=== PATIENT | male | born 1940 | race Caucasian/White ===

== ENCOUNTER 2020-03-30 08:53 | Observation (INO) | payer OTHER ==
[2020-03-30] VITALS (15 sets, daily range): BP systolic 113–153; BP diastolic 54–82
[~2020-03-30] VITALS: Ht 152.4 cm; Wt 87.1 kg
--- NOTE | ~2020-03-30 | SHORT ---
[address] [address] SHORT STAY SUMMARY Name: HALEY PHILLIPS Room: [address] Kasey Nicolas#: [id number] Admission: 03/30/20 Attend Phys: Odin Roldan MD, F Discharge: 03/31/20 Date of : 44 Report #: [id number] THIS REPORT FOR: //name// CC: Odin Kearns MD DATE OF SERVICE: 03/31/2020 PRIMARY CARE PHYSICIAN: Edward Kearns MD DISCHARGE DIAGNOSES: 1. Coronary artery disease. 2. Aortic stenosis. 3. Hypertension. 4. Hyperlipidemia. CONSULTANTS: None. PROCEDURES: Right and left heart catheterization with placement of 2 drug-eluting stents in the right coronary artery via the femoral approach. HISTORY OF PRESENT ILLNESS: The patient is a 79-year-old white male who was brought to the outpatient department to undergo repeat cardiac catheterization. The patient previously was followed by Dr. Otero. He had an abnormal stress test and had 3 coronary artery stents placed at [facility] in 2004. Recently, he was followed by my partner, Dr. Bryant. He has a known history of mild aortic stenosis. He is not very active because of chronic back pain and primarily using a wheelchair. He is scheduled to undergo an EGD for dyspepsia. Nuclear stress test 2017 showed no ischemia with an ejection fraction lower limits of normal. The patient was referred to my office on 03/23 for preoperative evaluation prior to undergoing an EGD. Echocardiogram in my office showed an ejection fraction of 50% with evidence of significant aortic stenosis. Previous carotid Doppler study showed no significant stenosis. Because of his need for procedure and evidence of significant aortic stenosis and coronary artery disease, recommended he undergo preop cardiac catheterization. However, he denies recent chest pain, shortness of breath, palpitation, syncope, or peripheral edema. PAST MEDICAL HISTORY: Significant for appendectomy. He has a history of hypertension and hyperlipidemia. MEDICATIONS ON ADMISSION: Included amlodipine, aspirin, Lipitor, and losartan. ALLERGIES: He had [place] [address] SHORT STAY SUMMARY Name: HALEY PHILLIPS Room: [address] Sergei.#: [id number] Admission: 03/30/20 Attend Phys: Odin Roldan MD, F Discharge: 03/31/20 Date of : 44 Report #: [id number] PHYSICAL EXAMINATION: GENERAL: Revealed an elderly male. VITAL SIGNS: Blood pressure 110/60, pulse is 60. NECK: Veins do not appear distended. CHEST: Clear to auscultation. CARDIOVASCULAR: Regular rate and rhythm, grade 3 systolic ejection murmur at left sternal border. ABDOMEN: Soft. EXTREMITIES: Had no edema. SKIN: Warm and dry. LABORATORY DATA: ECG showed sinus rhythm, nonspecific T-wave changes. His lab work on arrival, sodium was 127, potassium 5.3, BUN 11, creatinine 1.2. His cholesterol 176, triglycerides 75, HDL 123, LDL only 38. White blood cell count was 5.0, hemoglobin 12.1. His COVID stat test was not detected. HOSPITAL COURSE: The patient was brought to the outpatient department. I performed right and left heart catheterization via the right femoral artery and vein. He tolerated the procedure well. Coronary arteriograms: There was a 60% narrowing of the distal LAD. The circumflex had a large second marginal branch that had a stent with a 60% restenosis. The right coronary was a dominant vessel. There was a long stent that started proximally and ended in the mid right coronary artery. There was a 60% narrowing of the proximal portion of stent. There was an 80% stenosis at the distal edge of the stent. The distal right coronary artery prior to bifurcating had a 99% subtotal stenosis. Ejection fraction was 45-50%. I performed a right heart catheterization. Pulmonary artery pressure was 30/12 with a wedge pressure 14. Cardiac output was 5.43 liters per minute. The peak gradient across the aortic valve was only 30 mmHg consistent with moderate aortic stenosis and the valve area was 1.0 cm2. The results were discussed with the patient. He is felt to have only moderate aortic stenosis. I would not recommend TAVR at this time. However, he had a significant stenosis at distal right coronary artery. Despite the fact he was asymptomatic, I recommended stenting. He was then given heparin and Aggrastat. Because of tortuosity and calcification, the procedure required a mar wire for support. I was asked to place 2 drug-eluting stents in the mid and distal right coronary artery. Residual stenosis was 0%. He tolerated the procedure well. The sheath removed and the following day, had no significant hematoma. He had no further chest pain, shortness of breath, arrhythmias. At the time of discharge, the patient had no complaints. He had a blood pressure 130/60, pulse was 70. Lab work the following day included a potassium 4.5, sodium 133, creatinine 1.1. His troponin was 0.13. His hematocrit was 28.9. He was discharged to continue his home medications including amlodipine 10 mg a day for hypertension, aspirin 81 mg a day, Lipitor 10 mg a day, losartan 100 mg a day. In addition, he was started on Plavix 75 mg a day, which I would take for 1 year following placement of drug-eluting stent. He was also given nitroglycerin to take as needed for chest pain. He was [place] [address] SHORT STAY SUMMARY Name: HALEY PHILLIPS Room: [address] Kasey Nicolas#: [id number] Admission: 03/30/20 Attend Phys: Odin Roldan MD, F Discharge: 03/31/20 Date of : 44 Report #: [id number] Edward Kearns for routine medical care. I plan on seeing him back in Cardiology Clinic in 6 weeks for followup. He was to contact my office if he had recurrent shortness of breath, chest pain, or bleeding. The patient was to be followed for worsening of his aortic stenosis. Since I placed a drug-eluting stent, I would not recommend elective procedure for at least 3 months, which would be approximately 07/02/2020, when that will be safe to discontinue the Plavix for 5 days and proceed with EGD. By: 1653 [id number] Roldan MD, FACC /nt
[~2020-03-30 08:53] MED LIST: ALLEGRA ALLERG180 MG PO; ANTIVERT25 MG PO; ASPIR 8181 MG PO; COZAAR 25 MG TA25 M1 PO; FOLIC ACID1 MG PO; LIPITOR 10 MG10 M1 PO; NORVASC10 MG PO; SUPER THERAVIT1 EACH PO; VITAMIN D31250 MC1 PO; VITAMIN E1000 UNIT PO
[2020-03-30 09:38] LABS: HEMATOCRIT 35.3 % (42.0-52.0); HEMOGLOBIN 12.1 gm/dL (14.0-18.0); MCH 29.2 pg (26.0-34.0); MCHC 34.4 g/dL (28.0-37.0); MCV 84.9 fL (80.0-100.0); MPV 8.2 fl. (7.2-11.1); RBC 4.16 mil/uL (4.50-6.00); RDW-CV 13.6 % (10.5-14.5)
[2020-03-30 09:43] LABS: ANION GAP 9 mmol/L (7-16); BUN 11 mg/dL (7-18); CALCIUM 9.2 mg/dL (8.5-10.1); CHLORIDE 94 mmol/L (98-107); CO2 24 mmol/L (21-32); CREATININE 1.2 mg/dL (0.6-1.3); GLUCOSE 131 mg/dL (70-99); POTASSIUM 5.3 mmol/L (3.5-5.1); SODIUM 127 mmol/L (136-145)
[2020-03-30 09:44] LABS: APTT 28.7 Seconds (25.0-31.3); INR 1.2; PROTIME 11.9 Seconds (9.20-11.50)
[2020-03-30 09:54] LABS: ALBUMIN 3.3 g/dL (3.4-5.0); ALKALINE PHOSPHATASE 123 U/L (46-116); CHOLESTEROL 176 mg/dL (<200); HDL CHOLESTEROL 123 mg/dL (>40); LDL CHOLESTEROL 38 mg/dL (<100); SGOT 56 U/L (15-37); SGPT 36 U/L (30-65); TC:HDL 1.4 Ratio (Not establshd); TOTAL BILIRUBIN 0.5 mg/dL (<0.1-1.0); TOTAL PROTEIN 7.1 g/dL (6.4-8.2); TRIGLYCERIDE 75 mg/dL (<150); VLDL 15 mg/dL (<40)
[2020-03-30 09:56] LABS: SERUM ASSESSMENT Clear
[2020-03-30] MEDS ORDERED: ACIDOPHILUS PR1 EACH PO (10:16)
[2020-03-30 11:30] LABS: BE -4.1 mmol/L (-2 to +3); PCO2 34.2 mmHg (35.0-45.0); PO2 73.2 mmHg (75.0-100.0); pH 7.389 (7.340-7.450)
[2020-03-30 11:33] LABS: BE -2.3 mmol/L (-2 to +3); PCO2 VENOUS 39.9 mmHg (41.0-51.0)
--- NOTE | 2020-03-30 16:48 | EKG ---
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1940 Requested By: Odin Roldan Order Number: [id number] Valdez MD: Odin Roldan Measurements Intervals [place] Rate: 75 P: 59 [place]: 178 QRS: 4 QRSD: 118 T: 107 QT: 379 QTc: 424 Interpretive Statements Sinus rhythm Borderline low voltage, extremity leads No previous ECG available for comparison Electronically Signed On 03-30-2020 16:48:02 CDT by Odin Roldan [email or web address] <ELECTRONICALLY SIGNED> By: Odin Roldan MD, [facility] 03/30/20 1648 1353 1353 Odin Roldan MD, [facility] /EPI
--- NOTE | 2020-03-30 18:05 | CARD ---
[address] [address] CARDIAC CATH REPORT Name: HALEY PHILLIPS Room: [address] Kasey Nicolas#: [id number] Admission: 03/30/20 Attend Phys: Odin Roldan MD, F Discharge: Date of : 44 Report #: [id number] THIS REPORT FOR: //name// cc: Edward Kearns MD, [place] S. MD ~ APPROVED REPORT Study performed: 03/30/2020 09:57:21 Patient Details Patient Status: Out-Patient Room #: The patient is a 79 year-old male Event Personnel Odin Roldan Blow Molding Machine Tender, Chao Tapia RN RN, Tressa Vega RTR Scrub, Chrissy Cruz RTR Monitor, Minesh Constantino SYSTEMS DEVELOPMENT CONSULTANT Monitor Procedures Performed Art Access - R femoral artery Reji Access - R femoral vein Right and Left Heart Cath w/or w/o Coronarie Supravalvular Aortography Injection JOELLEN Place w/wo Plasty Single RCA Hemostasis with Manual pressure Indication Valvular heart disease Risk Factors Arterial Hypertension, Hypercholesterolemia, Coronary Artery Disease Previous Procedures/Diagnoses Previous PCI Admission/Lab Medications/Medications given during procedure Glycoprotein IllbIlla Inhibitors, Heparin Unfract., 0.9% Sodium Chloride IV 75 ml per hr, Midazolam (Versed) IV 3 mg, Oxygen Nasal cannula 2 l per min, Heparin IV 6000 units, Heparin IV 1000 units, Fentanyl IV 25 mcg, Aggrastat IV 8.7 ml, Plavix PO 600 mg Procedure Narrative The patient was brought electively to the Cardiac Catheterization Laboratory and was prepped and draped in a sterile manner. The right femoral was infiltrated with 2% [place] [address] CARDIAC CATH REPORT Name: HALEY PHILLIPS Room: [address]#: [id number] Admission: 03/30/20 Attend Phys: Odin Roldan MD, F Discharge: Date of : 44 Report #: [id number] Right Heart Catheterization was performed with a 7 Fr. Edmond-Clint catheter and pressure were recorded. Cardiac outputs were obtained by the [place] and Thermal Dilution method. A 7Fr x 11cm Lynette sheath was inserted into the right femoral artery. Coronary angiography was performed using coronary diagnostic catheters. The right coronary system was accessed and visualized with a Diagnostic 6 Fr JR 4 catheter. The left coronary system was accessed and visualized with a Diagnostic 6 Fr JL 4 catheter. The left ventricle was accessed and visualized with a Diagnostic 6 Fr Pigtail catheter. Left ventricular/Aortic Valve gradient assessed via simultaneous left ventricle and right femoral artery pressure. Left ventriculogram was performed in RICHARDS projection. An aortogram of the aortic root was performed. Hemostasis was obtained with manual pressure following sheath removal without any complications. The patient tolerated the procedure well and there were no complications associated with the procedure. There was no hematoma. 7 nauruan sheath was placed in the right femoral vein, and removed at the end of the procedure with hemostasis achieved by manual compression. Aortic root injection was performed with the pigtail catheter. The aortic valve was crossed with a straight tip glide wire advanced through the 6 nauruan JL4 catheter, and exchanged over an exchange wire for a dual lumen pigtail catheter. Intraoperative Conscious Sedation Sedation start time: 10:57 Case end Time: 12:58 Fentanyl 25 mcg Versed 3 mg Fluoro Time: 17.7 minutes Dose: DAP 038188 cGycm2 2371 mGy Contrast Type and Amount: Visipaque 245 ml Coronary Angiography The patient's coronary anatomy is right dominant. Diagnostic Cath Left Main 0% stenosis LAD 60% distal stenosis Circumflex 0% stenosis OM2 large vessel with a previous stent than had a 40% mid restenosis Right Coronary long stent that started in the proximal rca and extended beyond the RV branch into the mid rca. There was a 60% stenosis noted in the mid portion of the stent, and an 80% restenosis noted in the distal portion of the stent, and a 99% stenosis [place] [address] CARDIAC CATH REPORT Name: HALEY PHILLIPS Room: [address] Kasey MSamiRSami#: [id number] Admission: 03/30/20 Attend Phys: Odin Roldan MD, F Discharge: Date of : 44 Report #: [id number] Left Ventriculography The left ventricular ejection fraction is estimated to be 45-50%. Left ventricular wall motion abnormalities are not present. There is no mitral insufficiency. trace aortic insufficiency noted on aortic root injection Hemodynamics The right atrial mean pressure is 4 mmHg. The right ventricular pressure is 36/4 mmHg. The pulmonary artery pressure is 33/11 mmHg with a mean of 20 mmHg. The mean pulmonary capillary wedge pressure is 14 mmHg. The aortic pressure is 123/55 mmHg with a mean of 79 mmHg. The left ventricular pressure is 150/2 mmHg with a mean of mmHg. The left ventricular end diastolic pressure is 15 mmHg. Pullback from the left ventricle to the aorta revealed a 30 mm gradient across the aortic valve. PaO2 saturation is 69.2 %. Arterial saturation is 94.8 %. The cardiac output and index were assessed using thermodilution. The cardiac output using thermo method is 5.43 L/min. The cardiac index using thermo method is 2.68 L/min/m2. The peak gradient across the aortic valve is 30 mmHg. The aortic valve area is 0.9-1.0 cm2. PCI Technique Lesion Anticoagulation was achieved with Heparin. bolus of iv aggrastat given Percutaneous coronary intervention was performed on the mid and distal right coronary artery. The lesion stenosis prior to intervention was 99% with ELVIN 3 flow. A 6F JR 4.0 Guide Catheter was used to engage the right ostium. A IG: BMW 190cm Interventional Guidewire was used to cross the lesion. BALLOON DILATION A Balloon catheter Euphora SC 2.0x10mm was inserted and inflated up to 10.00atm for 15seconds. Repeat angiography revealed the following post-dilatation results: 60% stenosis. Additional Inflation: 17.00atm for 13seconds. Additional Inflation: 19.00atm for 17seconds. STENT DEPLOYMENT A drug-eluting stent [place] RX Stent 2.10J80rc was inserted and inflated up to 14.00atm for 18seconds. Additional Inflation: 16.00atm for 15seconds. Because of tortuosity and calcification of the rca, unable to advance 38 mm x 2.5 drug eluting stent despite the use of a second BMW wire acting as a mar wire. After additional predilatation, was able to advance a 2.25 x 12 mm drug eluting stent into the distal rca using a mar wire. A second drug eluting stent which was 2.5 x 30 mm drug eluting stent was placed in the mid rca, so that there was minimal overlap between this stent and the more [address] [address] CARDIAC CATH REPORT Name: ALANHALEY J Room: [address] Kasey Nicolas#: [id number] Admission: 03/30/20 Attend Phys: Odin Roldan MD, F Discharge: Date of : 44 Report #: [id number] distal stent. Arteriogram revealed residual stenosis of the proximal portion of the second stent. Attempted to advance a 3.0x 12 mm noncomplaint balloon into the stent, but these efforts were unsuccessful. Was able to advance a 2.5 x 15 mm balloon into the stent. POST STENT DEPLOYMENT BALLOON DILATION A Balloon catheter 2.5 x 15 mm was inserted and inflated up to 22atm for 15seconds. Repeat angiography revealed the following post-dilatation results: 0% stenosis. Final angiography reveals 0 % stenosis with ELVIN 3 flow. Conclusion 1. no restenosis of a stent in the second marginal branch of the circumflex artery. 2. 80% restenosis of the distal portion of a long stent in the proximal and mid rca, with a 99% stenosis noted in the distal rca 3. LVEF 45-50% 4. Moderate aortic stenosis with a valve area of 0.9-1.0 cm squared 5. successful placement of 2 drug eluting stents in the mid and distal rca Recommendations Cardiac Rehabilitation Referral Aggressive Medical Therapy Medications Administered Clopidogrel <ELECTRONICALLY SIGNED> By: Odin Roldan MD, [facility] 03/30/201804 04 04Damason Roldan MD, [facility] /INF
[2020-03-31] VITALS: BP 124/73
[2020-03-31 04:00] VITALS: BP 116/63
[2020-03-31 05:06] LABS: HEMATOCRIT 28.9 % (42.0-52.0); MCH 29.4 pg (26.0-34.0); MCHC 34.6 g/dL (28.0-37.0); MCV 84.9 fL (80.0-100.0); MPV 8.8 fl. (7.2-11.1); RBC 3.41 mil/uL (4.50-6.00); WBC 4.2 thou/uL (4.0-11.0)
[2020-03-31 05:28] LABS: CALCIUM 8.3 mg/dL (8.5-10.1); CREATININE 1.1 mg/dL (0.6-1.3); POTASSIUM 4.5 mmol/L (3.5-5.1)
[2020-03-31 08:00] VITALS: BP 136/65
[2020-03-31 10:45] VITALS: BP 134/60
[2020-03-31 11:42] VITALS: BP 134/60
[2020-03-31] MEDS ORDERED: NITROGLYCERIN0.4 MG SUBLING (11:51)
[2020-03-31] MEDS ORDERED: PLAVIX 75 MG TA75 MG PO (11:53)
[2020-03-31 12:23] VITALS: BP 134/60
--- NOTE | 2020-03-31 14:35 | EKG ---
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1940 Requested By: Odin Roldan Order Number: [id number] Reading MD: Víctor Woody Measurements Intervals [place] Rate: 71 P: -46 MS: 154 QRS: 16 QRSD: 119 T: 91 QT: 372 QTc: 405 Interpretive Statements Sinus rhythm Nonspecific T flattening, lateral leads Compared to ECG 03/30/2020 13:53:17 T-wave abnormality now present Electronically Signed On 03-31-2020 14:35:12 CDT by Víctor Woody [email or web address] <ELECTRONICALLY SIGNED> By: Víctor Woody MD, FAC 03/31/20 1435 08 08 Víctor Woody MD, [facility] /EPI
== END 2020-03-31 12:51 | disposition home or self-care (01) ==
LOC: M.CL 08:53 → M.TBA-CV 12:02 → M.2W 14:43
PROVIDERS: ADMIT Internal Medicine Cardiovascular Disease; ATTEND Internal Medicine Cardiovascular Disease
DX: I25.10 Atherosclerotic heart disease of native coronary artery without angina pectoris (principal); I10 Essential (primary) hypertension; E78.00 Pure hypercholesterolemia, unspecified; I35.0 Nonrheumatic aortic (valve) stenosis; R10.13 Epigastric pain; E78.5 Hyperlipidemia, unspecified; Z79.82 Long term (current) use of aspirin; Z79.899 Other long term (current) drug therapy